=== PATIENT | female | born 1960 | race African-American/Black ===

== ENCOUNTER 2019-09-07 09:18 | Day surgery (SDC) | payer MEDICARE ==
[~2019-09-07 09:18] MED LIST: AMLODIPINE BESYL5 MG PO; AMOXICILLIN500 MG PO; ASA/BUT/CAF1 PO; ASPIRIN EC81 MG PO; ASPIRIN81 MG PO; CEPHALEXIN500 MG PO; CHILD ASA LS81 MG OR; CIPROFLOXACN500 MG PO; CYANOCOBALAM1000 MC1 IM; CYANOCOBALAM1000 MCG IM; EC ASPIRIN325 MG PO; FLEXERIL OR; FLUZONE SPLT1 M1 IM; GABAPENTIN300 M2 PO; GABAPENTIN300 MG PO; GLIPIZIDE5 M2 PO; GLUCOTROL10 MG PO; INSULIN SC; IPRATROPIU0.5 MG/3 M NEB; IRON325 M1 PO; LASIX 20 MG TAB20 MG PO; LASIX 20 MG20 MG/TAB PO; LEVEMIR; LEVEMIR SC; LIPITOR40 M1 PO; LISINOPRIL5 MG PO; LOSARTAN POT50 MG PO; LOVASTATIN10 M1 PO; METFORMIN1000 MG PO; METFORMIN500 MG PO; MUPIROCIN2 % EX; NEURONTIN300 MG PO; NOVOLIN R IJ; PERCOCET 5/325M1 TAB; PREDNISONE10 MG PO; TEST STRIP SC; TRAMADOL HCL50 MG PO; TRESIBA FL100 UNIT/M SC; ULTRAM50 MG PO; VICTOZA18 MG/3 ML SC; VITAMIN B-121000 MC1 SL; ZITHROMAX250 MG PO; ZITHROMAX500 MG PO
[2019-09-07 13:01] VITALS: BP 142/70
== END 2019-09-07 12:45 | disposition home or self-care (01) ==
LOC: ENDO 09:18
PROVIDERS: ATTEND Surgery
PROC: 0DJD8ZZ Inspection of Lower Intestinal Tract, Via Natural or Artificial Opening Endoscopic (ICD-10-PCS; principal; 2019-09-07)
DX: Z12.11 Encounter for screening for malignant neoplasm of colon (principal); K57.30 Diverticulosis of large intestine without perforation or abscess without bleeding; K64.8 Other hemorrhoids; E11.9 Type 2 diabetes mellitus without complications; I10 Essential (primary) hypertension; Z79.4 Long term (current) use of insulin; Z11.59 Encounter for screening for other viral diseases

== ENCOUNTER 2023-11-22 13:56 | Inpatient (IN) | payer MEDICARE ==
[~2023-11-22] VITALS: Ht 165.1 cm; Wt 158.0 kg
[~2023-11-22 13:56] MED LIST changes: +DIFLUCAN150 MG PO; +KEFLEX500 MG PO; +NYSTOP100000 UNI TD
[2023-11-22 14:00] VITALS: BP 138/75
[2023-11-22 14:23] LABS: BASO% 0.1 % (0-3); EOS% 2.2 % (0-8); HEMOGLOBIN 11.4 g/dl (12.0-16.0); IMMATURE GRANULOCYTES 0.3 % (0.0-5.0); LYMPH% 30.3 % (15-41); MEAN CELL VOLUME 83.3 fL CALC (80.0-100.0); MEAN CORPUSCULAR HGB 23.2 pG CALC (26.0-32.0); MEAN CORPUSCULAR HGB CONC 27.8 g/dL CAL (32.0-36.0); MONO% 6.3 % (2-13); NEUT# 8.61 thou/uL (2.00-7.15); NEUT% 60.8 % (42-76); RED BLOOD COUNT 4.92 mill/uL (4.20-5.60); RED CELL DISTRI WIDTH 15.7 % (11.5-15.5)
[2023-11-22 14:33] LABS: ALBUMIN 4.2 g/dL (3.2-5.0); BILIRUBIN, TOTAL 0.6 mg/dL (0.02-1.3); CREATININE 2.7 mg/dL (0.5-1.0); TOTAL PROTEIN 8.4 g/dL (6.3-8.2)
[2023-11-22 14:38] LABS: POTASSIUM 5.5 mmol/l (3.5-5.1)
[2023-11-22] MEDS ORDERED: SODIUM CHLORIDE 0.9% 1,000 ML IV ONE (15:05)
[2023-11-22 15:26] LABS: URINE BILIRUBIN - DIPSTICK Negative (NEGATIVE); URINE BLOOD DIPSTICK Negative (NEGATIVE); URINE COLOR Yellow; URINE GLUCOSE - DIPSTICK 500 mg/dL (NEGATIVE); URINE KETONE Negative (NEGATIVE); URINE LEUK ESTERASE Moderate (NEGATIVE); URINE NITRITE - DIPSTICK Negative (Negative); URINE PH 5.5 (4.5-8.0); URINE PROTEIN - DIPSTICK 100 mg/dL (NEG-TRACE); URINE UROBILINOGEN - DIPSTICK 0.2 E.U./dL (0.2)
[2023-11-22] MEDS ORDERED: AZITHROMYCIN 500 MG in SODIUM CHLORIDE 0.9% 250 ML IV ONE (15:30)
[2023-11-22 15:32] LABS: URINE BACTERIA MODERATE hpf; URINE SQUAMOUS EPITHELIAL CELL MANY EPI/hpf (0-FEW)
[2023-11-22] MEDS ORDERED: SODIUM CHLORIDE 0.9% 1,000 ML IV PRN (15:45)
[2023-11-22] MEDS ORDERED: MAGNESIUM HYDROXIDE 30 ML UDC PO PRN (15:45)
[2023-11-22] MEDS ORDERED: ACETAMINOPHEN 325 MG/TAB PO PRN (15:45)
[2023-11-22] MEDS ORDERED: IPRATROPIUM-Albuterol 0.5MG-2.5MG/3 ML NEB ONE ×2 (16:05)
[2023-11-22 20:19] VITALS: BP 153/70
[2023-11-22] MEDS ORDERED: GABAPENTIN 300 MG/CAP PO SCH (21:00)
[2023-11-22] MEDS ORDERED: Heparin SODIUM (Porcine) 5,000 UNITS/ML SDV SC SCH (21:00)
[2023-11-23] VITALS (8 sets, daily range): BP systolic 108–172; BP diastolic 53–72
[2023-11-23 05:46] LABS: HEMATOCRIT 43.1 % (37.0-47.0); HEMOGLOBIN 11.9 g/dl (12.0-16.0); MEAN CELL VOLUME 84.5 fL CALC (80.0-100.0); MEAN CORPUSCULAR HGB 23.3 pG CALC (26.0-32.0); MEAN CORPUSCULAR HGB CONC 27.6 g/dL CAL (32.0-36.0); RED BLOOD COUNT 5.1 mill/uL (4.20-5.60); RED CELL DISTRI WIDTH 15.8 % (11.5-15.5)
[2023-11-23 06:06] LABS: ALBUMIN 3.9 g/dL (3.2-5.0); BILIRUBIN, TOTAL 0.4 mg/dL (0.02-1.3); CREATININE 2.7 mg/dL (0.5-1.0); TOTAL PROTEIN 7.6 g/dL (6.3-8.2)
[2023-11-23 06:08] LABS: MAGNESIUM 2.3 mg/dL (1.6-2.3); POTASSIUM 5.2 mmol/l (3.5-5.1)
[2023-11-23] MEDS ORDERED: DEXTROSE 250 ML IV PRN (06:40)
[2023-11-23] MEDS ORDERED: IPRATROPIUM-Albuterol 0.5MG-2.5MG/3 ML NEB SCH (07:00)
[2023-11-23] MEDS ORDERED: INSULIN LISPRO 100 UNITS/ML ML SC SCH (07:30)
[2023-11-23] MEDS ORDERED: ASPIRIN 81 MG/TAB PO SCH (09:00)
[2023-11-23] MEDS ORDERED: predniSONE 20 MG/TAB PO SCH (09:00)
[2023-11-23] MEDS ORDERED: FLUTICASONE PROPIONATE (Nasal) 50MCG/SPRAY INH SCH (09:00)
[2023-11-23] MEDS ORDERED: IPRATROPIUM-Albuterol 0.5MG-2.5MG/3 ML NEB PRN (11:26)
[2023-11-23] MEDS ORDERED: NYSTATIN 1500 MU/BTL TOP SCH (13:00)
[2023-11-23] MEDS ORDERED: AZITHROMYCIN 500 MG in SODIUM CHLORIDE 0.9% 250 ML IV SCH (15:30)
[2023-11-24 00:21] VITALS: BP 137/66
[2023-11-24 04:47] VITALS: BP 118/38
[2023-11-24 05:28] LABS: ALBUMIN 3.4 g/dL (3.2-5.0); CREATININE 2.3 mg/dL (0.5-1.0)
[2023-11-24 05:31] LABS: ALBUMIN 3.7 g/dL (3.2-5.0); BILIRUBIN, TOTAL 0.5 mg/dL (0.02-1.3); CREATININE 2.3 mg/dL (0.5-1.0); MAGNESIUM 2.2 mg/dL (1.6-2.3); POTASSIUM 5.1 mmol/l (3.5-5.1); TOTAL PROTEIN 7.4 g/dL (6.3-8.2)
[2023-11-24 05:33] LABS: POTASSIUM 5.2 mmol/l (3.5-5.1)
[2023-11-24 05:38] LABS: BASO% 0.2 % (0-3); HEMATOCRIT 40.4 % (37.0-47.0); HEMOGLOBIN 11.3 g/dl (12.0-16.0); IMMATURE GRANULOCYTES 0.4 % (0.0-5.0); LYMPH% 24.1 % (15-41); MEAN CELL VOLUME 84.7 fL CALC (80.0-100.0); MEAN CORPUSCULAR HGB 23.7 pG CALC (26.0-32.0); MONO% 5.5 % (2-13); NEUT# 8.91 thou/uL (2.00-7.15); NEUT% 64.8 % (42-76); RED BLOOD COUNT 4.77 mill/uL (4.20-5.60); RED CELL DISTRI WIDTH 15.7 % (11.5-15.5)
[2023-11-24 07:20] VITALS: BP 145/61
[2023-11-24] MEDS ORDERED: AMOX/K CLAV875 M1 PO (10:48)
[2023-11-24 11:06] VITALS: BP 149/66
[2023-11-24 16:14] VITALS: BP 128/53
== END 2023-11-24 18:09 | DRG 193 ==
LOC: ED 13:56 → ED-I 15:22 → ED 16:06 → MS2 16:07
PROVIDERS: Family Medicine; Internal Medicine Nephrology; Student in an Organized Health Care Education/Training Program; ADMIT Internal Medicine; ATTEND Internal Medicine
DX: J18.9 Pneumonia, unspecified organism (principal); J96.01 Acute respiratory failure with hypoxia; J96.02 Acute respiratory failure with hypercapnia; E87.4 Mixed disorder of acid-base balance; Z68.43 Body mass index [BMI] 50.0-59.9, adult; N18.4 Chronic kidney disease, stage 4 (severe); E66.2 Morbid (severe) obesity with alveolar hypoventilation; E87.5 Hyperkalemia; D63.1 Anemia in chronic kidney disease; I12.9 Hypertensive chronic kidney disease with stage 1 through stage 4 chronic kidney disease, or unspecified chronic kidney disease; E11.22 Type 2 diabetes mellitus with diabetic chronic kidney disease; E11.40 Type 2 diabetes mellitus with diabetic neuropathy, unspecified; E11.65 Type 2 diabetes mellitus with hyperglycemia; E78.5 Hyperlipidemia, unspecified; Z79.85 Long-term (current) use of injectable non-insulin antidiabetic drugs; Z87.440 Personal history of urinary (tract) infections; Z87.891 Personal history of nicotine dependence; Z20.822 Contact with and (suspected) exposure to COVID-19

== ENCOUNTER 2024-01-10 10:33 | Emergency (ER) | payer MEDICARE ==
[2024-01-10] VITALS (11 sets, daily range): BP systolic 120–164; BP diastolic 63–86
[~2024-01-10] VITALS: Ht 165.1 cm; Wt 149.0 kg
[~2024-01-10 10:33] MED LIST changes: +AMOX/K CLAV875 M1 PO; +LASIX40 MG PO; +ZESTRIL40 MG PO
[2024-01-10 11:56] LABS: BASO% 0.4 % (0-3); EOS% 4.4 % (0-8); HEMATOCRIT 42.6 % (37.0-47.0); IMMATURE GRANULOCYTES 0.4 % (0.0-5.0); LYMPH% 33.6 % (15-41); MEAN CORPUSCULAR HGB 23.4 pG CALC (26.0-32.0); MEAN CORPUSCULAR HGB CONC 28.2 g/dL CAL (32.0-36.0); MONO% 8.1 % (2-13); NEUT# 4.49 thou/uL (2.00-7.15); NEUT% 53.1 % (42-76); RED BLOOD COUNT 5.13 mill/uL (4.20-5.60); RED CELL DISTRI WIDTH 16.8 % (11.5-15.5)
[2024-01-10] MEDS ORDERED: ALBUTEROL SULFATE 2.5 MG VIAL IN ONE (12:05)
[2024-01-10 12:12] LABS: BILIRUBIN, TOTAL 0.5 mg/dL (0.02-1.3); CREATININE 1.5 mg/dL (0.5-1.0); POTASSIUM 4.6 mmol/l (3.5-5.1); TOTAL PROTEIN 7.8 g/dL (6.3-8.2)
[2024-01-10 12:13] LABS: ALBUMIN 4.1 g/dL (3.2-5.0)
[2024-01-10 12:28] LABS: PROTHROMBIN TIME 9.6 SECONDS (9.0-12.5)
[2024-01-10] MEDS ORDERED: methylPREDNISolone SODIUM SUCC 125 MG/2 ML SDV IV ONE (13:25)
[2024-01-10] MEDS ORDERED: ALBUTEROL SUL0.083 % IN (13:29)
[2024-01-10] MEDS ORDERED: PREDNISONE20 MG PO (13:29)
[2024-01-10] MEDS ORDERED: NEBULIZER PO (13:29)
== END 2024-01-10 13:57 | disposition home or self-care (01) ==
LOC: ED 10:33
PROVIDERS: Family Medicine
DX: J44.1 Chronic obstructive pulmonary disease with (acute) exacerbation (principal); I13.0 Hypertensive heart and chronic kidney disease with heart failure and stage 1 through stage 4 chronic kidney disease, or unspecified chronic kidney disease; E11.22 Type 2 diabetes mellitus with diabetic chronic kidney disease; N18.9 Chronic kidney disease, unspecified; I50.9 Heart failure, unspecified; E11.40 Type 2 diabetes mellitus with diabetic neuropathy, unspecified; E66.01 Morbid (severe) obesity due to excess calories; Z87.891 Personal history of nicotine dependence

== ENCOUNTER 2024-03-05 23:40 | Inpatient (IN) | payer MEDICARE ==
[~2024-03-05] VITALS: Ht 165.1 cm; Wt 154.4 kg
[~2024-03-05 23:40] MED LIST changes: +ALBUTEROL SUL0.083 % IN; +LASIX 40 MG TAB40 MG PO; +NEBULIZER PO; +OMNICEF300 MG PO; +PREDNISONE20 MG PO; +PREDNISONE50 MG PO
[2024-03-05] MEDS ORDERED: SODIUM CHLORIDE 0.9% 1,000 ML IV PRN (23:50)
[2024-03-05 23:51] VITALS: BP 151/79
[2024-03-05] MEDS ORDERED: ONDANSETRON HCl 4 MG/2 ML SDV IV ONE (23:55)
[2024-03-05] MEDS ORDERED: BENZONATATE 200 MG/CAP PO ONE (23:55)
[2024-03-06] VITALS (19 sets, daily range): BP systolic 104–169; BP diastolic 42–98
[2024-03-06] MEDS ORDERED: SODIUM CHLORIDE 0.9% 1,000 ML BAG IV ONE (00:10)
[2024-03-06 00:34] LABS: BASO% 0.4 % (0-3); EOS% 7.2 % (0-8); HEMATOCRIT 33.3 % (37.0-47.0); HEMOGLOBIN 9.5 g/dl (12.0-16.0); IMMATURE GRANULOCYTES 0.8 % (0.0-5.0); MEAN CELL VOLUME 81.6 fL CALC (80.0-100.0); MEAN CORPUSCULAR HGB 23.3 pG CALC (26.0-32.0); MEAN CORPUSCULAR HGB CONC 28.5 g/dL CAL (32.0-36.0); MONO% 6.5 % (2-13); NEUT# 9.53 thou/uL (2.00-7.15); NEUT% 66.1 % (42-76); RED BLOOD COUNT 4.08 mill/uL (4.20-5.60); RED CELL DISTRI WIDTH 16.5 % (11.5-15.5)
[2024-03-06 00:44] LABS: ALBUMIN 2.8 g/dL (3.2-5.0); BILIRUBIN, TOTAL 0.6 mg/dL (0.02-1.3); CREATININE 2.2 mg/dL (0.5-1.0); TOTAL PROTEIN 5.7 g/dL (6.3-8.2)
[2024-03-06 00:50] LABS: POTASSIUM 3.5 mmol/l (3.5-5.1)
[2024-03-06] MEDS ORDERED: INSULIN REGULAR (HUMAN) 100 UNIT/ML INJ IV ONE ×2 (00:55→01:25)
[2024-03-06] MEDS ORDERED: CEFEPIME HYDROCHLORIDE 2 GM in SODIUM CHLORIDE 0.9% 100 ML IV ONE (01:00)
[2024-03-06] MEDS ORDERED: GABAPENTIN 300 MG/CAP PO ONE (02:10)
[2024-03-06] MEDS ORDERED: MAGNESIUM HYDROXIDE 30 ML UDC PO PRN (02:25)
[2024-03-06] MEDS ORDERED: ACETAMINOPHEN 325 MG/TAB PO PRN (02:25)
[2024-03-06] MEDS ORDERED: SODIUM CHLORIDE 0.9% 1,000 ML IV PRN (02:25)
[2024-03-06] MEDS ORDERED: DEXTROSE 250 ML IV PRN (08:55)
[2024-03-06] MEDS ORDERED: INSULIN GLARGINE 100 UNITS/ML SC SCH (09:00)
[2024-03-06] MEDS ORDERED: IPRATROPIUM-Albuterol 0.5MG-2.5MG/3 ML NEB PRN (09:05)
[2024-03-06] MEDS ORDERED: INSULIN LISPRO 100 UNITS/ML ML SC SCH (11:00)
[2024-03-06] MEDS ORDERED: GUAIFENESIN 600 MG/TAB PO SCH (11:00)
[2024-03-06] MEDS ORDERED: CEFEPIME HYDROCHLORIDE 2 GM in SODIUM CHLORIDE 0.9% 100 ML IV SCH (13:00)
[2024-03-06] MEDS ORDERED: Heparin SODIUM (Porcine) 5,000 UNITS/ML SDV SC SCH (14:00)
[2024-03-06] MEDS ORDERED: NYSTATIN 1500 MU/BTL TOP SCH (21:00)
[2024-03-06] MEDS ORDERED: GABAPENTIN 300 MG/CAP PO SCH (21:00)
[2024-03-06] MEDS ORDERED: ATORVASTATIN CALCIUM 40 MG/TAB PO SCH (21:00)
[2024-03-07] VITALS (8 sets, daily range): BP systolic 126–149; BP diastolic 58–65
[2024-03-07 06:06] LABS: BASO% 0.1 % (0-3); EOS% 7.4 % (0-8); HEMATOCRIT 37.1 % (37.0-47.0); HEMOGLOBIN 10.1 g/dl (12.0-16.0); IMMATURE GRANULOCYTES 0.7 % (0.0-5.0); LYMPH% 29.5 % (15-41); MEAN CORPUSCULAR HGB 23.7 pG CALC (26.0-32.0); MEAN CORPUSCULAR HGB CONC 27.2 g/dL CAL (32.0-36.0); MONO% 7.8 % (2-13); NEUT# 8.29 thou/uL (2.00-7.15); NEUT% 54.5 % (42-76); RED BLOOD COUNT 4.27 mill/uL (4.20-5.60); RED CELL DISTRI WIDTH 17.1 % (11.5-15.5)
[2024-03-07 06:07] LABS: MEAN CELL VOLUME 86.9 fL CALC (80.0-100.0)
[2024-03-07 06:22] LABS: ALBUMIN 2.8 g/dL (3.2-5.0); BILIRUBIN, TOTAL 0.7 mg/dL (0.02-1.3); CREATININE 2.1 mg/dL (0.5-1.0); POTASSIUM 4.2 mmol/l (3.5-5.1); TOTAL PROTEIN 6.2 g/dL (6.3-8.2)
[2024-03-07] MEDS ORDERED: BOUDREAUX'S BUTT PASTE ZINC OXIDE 57 G PASTE EX PRN (06:35)
[2024-03-07] MEDS ORDERED: NYSTATIN 1500 MU/BTL TOP SCH (08:00)
[2024-03-07] MEDS ORDERED: FUROSEMIDE 40 MG/TAB PO SCH (09:00)
[2024-03-07] MEDS ORDERED: ASPIRIN 81 MG/TAB PO SCH (09:00)
[2024-03-07] MEDS ORDERED: LISINOPRIL 20 MG/TAB PO SCH (09:00)
[2024-03-07] MEDS ORDERED: DOXYCYCLINE HYCLATE 100 MG in SODIUM CHLORIDE 0.9% 100 ML IV SCH (11:30)
[2024-03-07 15:16] LABS: URINE BILIRUBIN - DIPSTICK Negative (NEGATIVE); URINE BLOOD DIPSTICK Moderate (NEGATIVE); URINE GLUCOSE - DIPSTICK Negative (NEGATIVE); URINE KETONE Trace mg/dL (NEGATIVE); URINE NITRITE - DIPSTICK Negative (Negative); URINE PH 5.5 (4.5-8.0); URINE PROTEIN - DIPSTICK 100 mg/dL (NEG-TRACE); URINE UROBILINOGEN - DIPSTICK 0.2 E.U./dL (0.2)
[2024-03-07 15:18] LABS: URINE BACTERIA MODERATE hpf; URINE COLOR Yellow; URINE LEUK ESTERASE Small (NEGATIVE); URINE WBC 20-50 WBC/hpf (0-5)
[2024-03-07] MEDS ORDERED: INSULIN GLARGINE 100 UNITS/ML SC SCH (21:00)
[2024-03-08] VITALS (21 sets, daily range): BP systolic 49–222; BP diastolic 27–190
[2024-03-08 05:09] LABS: BASO% 0.3 % (0-3); EOS% 6.7 % (0-8); HEMATOCRIT 35.3 % (37.0-47.0); HEMOGLOBIN 9.8 g/dl (12.0-16.0); IMMATURE GRANULOCYTES 1.4 % (0.0-5.0); LYMPH% 28.8 % (15-41); MEAN CELL VOLUME 85.7 fL CALC (80.0-100.0); MEAN CORPUSCULAR HGB 23.8 pG CALC (26.0-32.0); MEAN CORPUSCULAR HGB CONC 27.8 g/dL CAL (32.0-36.0); MONO% 7.5 % (2-13); NEUT# 8.67 thou/uL (2.00-7.15); NEUT% 55.3 % (42-76); RED BLOOD COUNT 4.12 mill/uL (4.20-5.60)
[2024-03-08 05:15] LABS: ALBUMIN 2.7 g/dL (3.2-5.0); BILIRUBIN, TOTAL 0.8 mg/dL (0.02-1.3); CREATININE 2.6 mg/dL (0.5-1.0); MAGNESIUM 1.8 mg/dL (1.6-2.3); POTASSIUM 4.9 mmol/l (3.5-5.1)
[2024-03-08] MEDS ORDERED: FUROSEMIDE 40 MG/4 ML SDV IV SCH (09:00)
[2024-03-09] VITALS (55 sets, daily range): BP systolic 46–182; BP diastolic 13–94
[2024-03-09 04:19] LABS: BASO% 0.2 % (0-3); EOS% 4.4 % (0-8); HEMOGLOBIN 9.2 g/dl (12.0-16.0); IMMATURE GRANULOCYTES 1.6 % (0.0-5.0); LYMPH% 27.5 % (15-41); MEAN CELL VOLUME 85.3 fL CALC (80.0-100.0); MEAN CORPUSCULAR HGB 23.8 pG CALC (26.0-32.0); MEAN CORPUSCULAR HGB CONC 27.9 g/dL CAL (32.0-36.0); MONO% 7.3 % (2-13); NEUT# 9.74 thou/uL (2.00-7.15); RED BLOOD COUNT 3.87 mill/uL (4.20-5.60)
[2024-03-09 04:29] LABS: ALBUMIN 2.9 g/dL (3.2-5.0); BILIRUBIN, TOTAL 0.6 mg/dL (0.02-1.3); MAGNESIUM 1.7 mg/dL (1.6-2.3); POTASSIUM 4.2 mmol/l (3.5-5.1); TOTAL PROTEIN 6.3 g/dL (6.3-8.2)
[2024-03-09 04:37] LABS: CREATININE 4.2 mg/dL (0.5-1.0)
[2024-03-09] MEDS ORDERED: SODIUM CHLORIDE 0.9% 1,000 ML IV SCH (08:00)
[2024-03-09] MEDS ORDERED: KETAMINE HCL 50 MG/ML 10 ML VIAL IV SCH (08:15)
[2024-03-09] MEDS ORDERED: SODIUM CHLORIDE 0.9% 250 ML IV PRN (08:15)
[2024-03-09] MEDS ORDERED: SUCCINYLCHOLINE CHLORIDE 20 MG/ML 10ML VIAL IV ONE ×2 (08:15→08:35)
[2024-03-09] MEDS ORDERED: KETAMINE HCL 50 MG/ML 10 ML VIAL IM ONE (08:15)
[2024-03-09] MEDS ORDERED: NOREPINEPHRINE BITARTRATE 4 MG in DEXTROSE 5% 250 ML IV ONE (08:15)
[2024-03-09] MEDS ORDERED: NOREPINEPHRINE BITARTRATE 4 MG/VIAL SDV ONE (08:20)
[2024-03-09] MEDS ORDERED: ROCURONIUM BROMIDE 10 MG/ML 5ML VIAL IV ONE ×2 (08:20→08:35)
[2024-03-09] MEDS ORDERED: SODIUM CHLORIDE 0.9% 250 ML IV ONE ×2 (08:21→09:23)
[2024-03-09] MEDS ORDERED: SODIUM CHLORIDE 0.9% 100 ML IV ONE (08:24)
[2024-03-09] MEDS ORDERED: PHENYLEPHRINE HCL 10 MG/ML VIAL ONE (08:24)
[2024-03-09] MEDS ORDERED: PROPOFOL 100 ML IV ONE (08:34)
[2024-03-09] MEDS ORDERED: KETAMINE HCL 50 MG/ML 10 ML VIAL IV ONE (08:35)
[2024-03-09] MEDS ORDERED: NOREPINEPHRINE BITARTRATE 4 MG in DEXTROSE 5% 250 ML IV PRN (08:40)
[2024-03-09] MEDS ORDERED: PROPOFOL 100 ML IV PRN (08:45)
[2024-03-09] MEDS ORDERED: methylPREDNISolone Sod Succ 40 MG/ML SDV IV SCH (09:00)
[2024-03-09] MEDS ORDERED: SODIUM CHLORIDE 0.9% 1,000 ML BAG IV ONE (11:29)
[2024-03-09] MEDS ORDERED: DEXTROSE 10% 250 ML BAG IV ONE (11:29)
[2024-03-09] MEDS ORDERED: CEFEPIME HYDROCHLORIDE 1 GM in SODIUM CHLORIDE 0.9% 50 ML IV SCH (13:00)
== END 2024-03-09 12:45 | disposition short-term general hospital (02) | DRG 291 ==
LOC: ED 23:40 → ED-I 23:53 → ED 03-06 02:20 → MS2 03-06 02:21 → ICU 03-08 20:22
PROVIDERS: Family Medicine; Nurse Practitioner Family; ADMIT Student in an Organized Health Care Education/Training Program; ATTEND Student in an Organized Health Care Education/Training Program
PROC: 0BH17EZ Insertion of Endotracheal Airway into Trachea, Via Natural or Artificial Opening (ICD-10-PCS; principal; 2024-03-09)
PROC: 5A1935Z Respiratory Ventilation, Less than 24 Consecutive Hours (ICD-10-PCS; 2024-03-09)
PROC: 02HV33Z Insertion of Infusion Device into Superior Vena Cava, Percutaneous Approach (ICD-10-PCS; 2024-03-09)
PROC: 0T9B70Z Drainage of Bladder with Drainage Device, Via Natural or Artificial Opening (ICD-10-PCS; 2024-03-09)
PROC: 5A0935A Assistance with Respiratory Ventilation, Less than 24 Consecutive Hours, High Flow/Velocity Cannula (ICD-10-PCS; 2024-03-09)
PROC: 3E043XZ Introduction of Vasopressor into Central Vein, Percutaneous Approach (ICD-10-PCS; 2024-03-09)
DX: I13.0 Hypertensive heart and chronic kidney disease with heart failure and stage 1 through stage 4 chronic kidney disease, or unspecified chronic kidney disease (principal); J18.9 Pneumonia, unspecified organism; N17.0 Acute kidney failure with tubular necrosis; J96.22 Acute and chronic respiratory failure with hypercapnia; J96.21 Acute and chronic respiratory failure with hypoxia; E66.2 Morbid (severe) obesity with alveolar hypoventilation; Z68.43 Body mass index [BMI] 50.0-59.9, adult; J44.0 Chronic obstructive pulmonary disease with (acute) lower respiratory infection; N18.4 Chronic kidney disease, stage 4 (severe); I95.9 Hypotension, unspecified; E86.9 Volume depletion, unspecified; E11.22 Type 2 diabetes mellitus with diabetic chronic kidney disease; I50.9 Heart failure, unspecified; E11.65 Type 2 diabetes mellitus with hyperglycemia; E11.40 Type 2 diabetes mellitus with diabetic neuropathy, unspecified; E78.5 Hyperlipidemia, unspecified; T17.928A Food in respiratory tract, part unspecified causing other injury, initial encounter; W44.F3XA Food entering into or through a natural orifice, initial encounter; Z87.891 Personal history of nicotine dependence; Z79.84 Long term (current) use of oral hypoglycemic drugs; Z20.822 Contact with and (suspected) exposure to COVID-19
CPT/HCPCS: J0692; J1815

== ENCOUNTER 2024-03-24 00:01 | Inpatient (IN) | payer MEDICARE ==
[~2024-03-24] VITALS: Ht 165.1 cm; Wt 155.6 kg
--- NOTE | 2024-03-24 23:19 | NUR ---
PT ARRIVED TO [facility] ROOM 261 VIA STRETCHER FROM [facility]. NO DISTRESS NOTED. PT ON NC 2L LUNGS DIMINISHED. PT CHANGED AND REPOSITIONED. CALL LIGHT INSTRUCTIONS GIVEN. PT STATED UNDERSTANDING.
[2024-03-25] MEDS ORDERED: COREG6.25 MG PO (01:19)
[2024-03-25] MEDS ORDERED: HYDRALAZINE HYD25 MG PO (01:21)
[2024-03-25] MEDS ORDERED: ACIDOPHILUS LAC1 CAP PO (01:22)
--- NOTE | 2024-03-25 04:15 | NUR ---
PT RESTING NO DISTRESS NOTED HEART MONITOR PLACED ON PT. CALL LIGHT WITHIN REACH.
[2024-03-25 05:27] LABS: BASO% 0.3 % (0-3); EOS% 5.6 % (0-8); HEMATOCRIT 36.1 % (37.0-47.0); HEMOGLOBIN 10.4 g/dl (12.0-16.0); LYMPH% 27.9 % (15-41); MEAN CELL VOLUME 82.2 fL CALC (80.0-100.0); MEAN CORPUSCULAR HGB 23.7 pG CALC (26.0-32.0); MEAN CORPUSCULAR HGB CONC 28.8 g/dL CAL (32.0-36.0); MONO% 10.4 % (2-13); NEUT# 4.93 thou/uL (2.00-7.15); NEUT% 54.8 % (42-76); RED BLOOD COUNT 4.39 mill/uL (4.20-5.60); RED CELL DISTRI WIDTH 18.9 % (11.5-15.5)
[2024-03-25 05:38] LABS: ALBUMIN 3.3 g/dL (3.2-5.0); BILIRUBIN, TOTAL 0.6 mg/dL (0.02-1.3); CREATININE 3.3 mg/dL (0.5-1.0); POTASSIUM 4.1 mmol/l (3.5-5.1); TOTAL PROTEIN 6.6 g/dL (6.3-8.2)
[2024-03-25 07:23] VITALS: BP 171/62
--- NOTE | 2024-03-25 07:45 | NUR ---
PATIENT LYING IN BED WITH EYES CLOSED RESTING. BREATHING UNLABORED ON 2L NC. TELE INTACT. NO SIGNS OF DISTRESS OR PAIN NOTED. BED IN LOWEST POSITION. CALL LIGHT WITHIN REACH. PUREWICK IN PLACE. NO NEEDS AT THIS TIME. POC ONGOING.
[2024-03-25 10:38] VITALS: BP 164/72
[2024-03-25] MEDS ORDERED: DEXTROSE 250 ML IV PRN (10:50)
[2024-03-25] MEDS ORDERED: ALBUTEROL SULFATE 2.5 MG VIAL IN PRN (10:50)
[2024-03-25] MEDS ORDERED: INSULIN LISPRO 100 UNITS/ML ML SC SCH (11:30)
[2024-03-25] MEDS ORDERED: FUROSEMIDE 40 MG/TAB PO SCH (11:30)
[2024-03-25] MEDS ORDERED: ASPIRIN 81 MG/TAB PO SCH (11:30)
--- NOTE | 2024-03-25 12:39 | NUR ---
PATIENT SITTING UP IN BED WATCHING TV. BREATHING UNLABORED 2L NC. TELE INTACT. PT DENIES ANY PAIN OR N/D/V AT THIS TIME. PERSONAL ITEMS WELL CALL LIGHT WITHIN REACH. BED IN LOWEST POSITION. POC ONGOING.
[2024-03-25] MEDS ORDERED: hydrALAZINE HCL 20 MG/ML VIAL(1 ML) IV PRN (13:25)
[2024-03-25] MEDS ORDERED: amLODIPine BESYLATE 5 MG/TAB PO SCH (13:30)
[2024-03-25] MEDS ORDERED: hydrALAZINE HCL 25 MG/TAB PO SCH (15:00)
[2024-03-25] MEDS ORDERED: GABAPENTIN 300 MG/CAP PO SCH (15:00)
--- NOTE | 2024-03-25 16:20 | NUR ---
PATIENT LYING IN BED WITH EYES CLOSED RESTING. BREATHING UNLABORED ON 2L NC. NO SIGNS OF DISTRESS OR PAIN NOTED. BED IN LOWEST POSITION. CALL LIGHT WITHIN REACH. NO NEEDS AT THIS TIME. POC ONGOING.
[2024-03-25 16:49] VITALS: BP 155/61
[2024-03-25] MEDS ORDERED: ATORVASTATIN CALCIUM 40 MG/TAB PO SCH (17:00)
[2024-03-25 18:44] VITALS: BP 148/68
[2024-03-25] MEDS ORDERED: CARVEDILOL 6.25 MG/TAB PO SCH (21:00)
[2024-03-26 00:05] VITALS: BP 137/59
[2024-03-26 04:22] VITALS: BP 149/62
[2024-03-26 05:20] LABS: BASO% 0.3 % (0-3); EOS% 6.5 % (0-8); HEMATOCRIT 36.9 % (37.0-47.0); HEMOGLOBIN 10.5 g/dl (12.0-16.0); IMMATURE GRANULOCYTES 0.6 % (0.0-5.0); LYMPH% 26.3 % (15-41); MEAN CELL VOLUME 82.6 fL CALC (80.0-100.0); MEAN CORPUSCULAR HGB 23.5 pG CALC (26.0-32.0); MEAN CORPUSCULAR HGB CONC 28.5 g/dL CAL (32.0-36.0); MONO% 11.6 % (2-13); NEUT# 4.81 thou/uL (2.00-7.15); NEUT% 54.7 % (42-76); RED BLOOD COUNT 4.47 mill/uL (4.20-5.60); RED CELL DISTRI WIDTH 18.7 % (11.5-15.5)
[2024-03-26 05:34] LABS: ALBUMIN 3.2 g/dL (3.2-5.0); BILIRUBIN, TOTAL 0.6 mg/dL (0.02-1.3); CREATININE 2.7 mg/dL (0.5-1.0); MAGNESIUM 1.7 mg/dL (1.6-2.3); POTASSIUM 4.2 mmol/l (3.5-5.1); TOTAL PROTEIN 6.4 g/dL (6.3-8.2)
[2024-03-26 06:54] VITALS: BP 157/66
--- NOTE | 2024-03-26 07:40 | NUR ---
PRN RESPIRATORY THERAPY ASSESSMENT PERFORMED & NO INTERVENTION INDICATED AT THIS TIME. WILL CONT TO MONITOR.
--- NOTE | 2024-03-26 07:56 | NUR ---
PATIENT LYING IN BED AWAKE. BREATHING UNLABORED ON 2L NC. TELE INTACT. IV IN LAC SL;SITE CLEAN AND INTACT. PT DENIES ANY PAIN OR N/D/V AT THIS TIME. PT CURRENTLY ON BEDPAN ATTEMPTING TO HAVE A BM. NO OTHER NEEDS AT THIS TIME. BED IN LOWEST POSITION. CALL LIGHT WITHIN REACH. POC ONGOING.
[2024-03-26 10:53] VITALS: BP 137/58
--- NOTE | 2024-03-26 10:55 | NUR ---
ATTEMPTED TO GET PT UP TO RECLINER X4 ASSIST UNSUCCESSFULLY. PATIENT LEANS TO LEFT SIDE WHEN SITTING UP ON THE END OF THE BED AND UNABLE TO PUSH HERSELF UP FROM BED WITH HELP. POC ONGOING.
[2024-03-26] MEDS ORDERED: DEXTROSE 250 ML IV PRN (11:35)
[2024-03-26] MEDS ORDERED: Heparin SODIUM (Porcine) 5,000 UNITS/ML SDV SC SCH (12:00)
--- NOTE | 2024-03-26 12:40 | NUR ---
PATIENT LYING IN BED WITH EYES CLOSED. BREATHING UNLABORED ON 2L NC. TELE INTACT. NO SIGNS OF DISTRESS OR PAIN NOTED. BED IN LOWEST POSITION. CALL LIGHT WITHIN REACH. POC ONGOING.
[2024-03-26 15:30] VITALS: BP 129/56
--- NOTE | 2024-03-26 16:05 | NUR ---
PATIENT BS [id number]. NOTIFIED AND AWARE. 10 UNITS OF INSULIN GIVEN PER SLIDING SCALE.
--- NOTE | 2024-03-26 16:43 | NUR ---
PATIENT LYING IN BED WATCHING TV. BREATHING UNLABORED ON 2L NC. TELE INTACT. IV IN LAC SL;SITE CLEAN AND INTACT. PT DENIES ANY PAIN OR N/D/V AT THIS TIME. BED IN LOWEST POSITION. CALL LIGHT WITHIN REACH. NO OTHER NEEDS AT THIS TIME. POC ONGOING.
[2024-03-26] MEDS ORDERED: INSULIN LISPRO 100 UNITS/ML ML SC SCH (17:00)
[2024-03-26 18:10] VITALS: BP 155/68
[2024-03-26] MEDS ORDERED: GUAIFENESIN 200 MG/10 ML UDC PO SCH (21:00)
[2024-03-27] VITALS (7 sets, daily range): BP systolic 100–138; BP diastolic 44–73
[2024-03-27 05:47] LABS: BASO% 0.4 % (0-3); EOS% 5.2 % (0-8); HEMATOCRIT 39.2 % (37.0-47.0); HEMOGLOBIN 10.9 g/dl (12.0-16.0); IMMATURE GRANULOCYTES 0.5 % (0.0-5.0); LYMPH% 26.2 % (15-41); MEAN CELL VOLUME 84.7 fL CALC (80.0-100.0); MEAN CORPUSCULAR HGB 23.5 pG CALC (26.0-32.0); MEAN CORPUSCULAR HGB CONC 27.8 g/dL CAL (32.0-36.0); MONO% 11.9 % (2-13); NEUT# 6.28 thou/uL (2.00-7.15); NEUT% 55.8 % (42-76); RED BLOOD COUNT 4.63 mill/uL (4.20-5.60); RED CELL DISTRI WIDTH 18.8 % (11.5-15.5)
[2024-03-27 06:08] LABS: ALBUMIN 3.4 g/dL (3.2-5.0); BILIRUBIN, TOTAL 0.6 mg/dL (0.02-1.3); CREATININE 2.7 mg/dL (0.5-1.0); POTASSIUM 4.3 mmol/l (3.5-5.1); TOTAL PROTEIN 6.9 g/dL (6.3-8.2)
[2024-03-27 06:23] LABS: MAGNESIUM 1.8 mg/dL (1.6-2.3)
--- NOTE | 2024-03-27 07:19 | NUR ---
PRN RT ASSESSMENT PERFORMED AT THIS TIME. PT RESTING COMFORTABLY. O2 SATS 95% ON 2.5L, HR 64, RR 16 & UNLABORED. LUNG SOUNDS SLIGHTLY DIMINISHED IN BILATERAL BASES WITH SCATTERED CRACKLES HEARD T/O. NO TX NEEDED AT THIS TIME. WILL CONT TO MONITOR.
--- NOTE | 2024-03-27 08:00 | NUR ---
Patient lying in bed watching television.
--- NOTE | 2024-03-27 12:01 | NUR ---
Patient lying in bed asleep.
--- NOTE | 2024-03-27 16:00 | NUR ---
Patient lying in bed with eyes closed.
--- NOTE | 2024-03-27 19:30 | NUR ---
PT IS ALERT AND ORIENTED X3. RESPS ARE EVEN AND UNLABORED. O2 ON PLACE ORDERED VIA NASAL CANNULA AT 2L. DIMINISHED/CLEAR LUNG SOUNDS TO AUSCULTATION. TELE MONITOR SHOWING SR 60'S AT THIS TIME. SKIN IS SCALY, WARMTH AND DRY. PUREWICK NOTED WITH IQRA URINE. 20 G IV ON LEFT A/C NOTED FLUSHED WITH 5 CC- APPEARS CLEAN AND HEALTHY. INSTRUCTED TO CALL FOR ASSISTANCE. BED IN LOWEST POSITION. CALL LIGHT IN REACH AND SAFETY PRECAUTIONS ON PLACE.
--- NOTE | 2024-03-27 19:30 | NUR ---
PT IS ALERT AND ORIENTED X3. RESPS ARE EVEN AND UNLABORED. OX ON PLACE VIA NASAL CANNULA AT 2L. LUNG SOUNDS ARE CLEAR TO AUSCULTATION . TELE MONITOR SHOWING SR-60'S AT THIS TIME. SKIN IS WARMTH AND DRY. NO EDEMA NOTED. WEAK PEDAL PALPABLE PULSES. PUREWICK ON PLACE WITH YELLOW URINE. INSTRUCTED TO CALL FOR ASSISTANCE IF NEEDED. CALL LIGHT IN REACH AND SAFETY PRECAUTIONS IN PLACE.
[2024-03-28] VITALS (53 sets, daily range): BP systolic 95–145; BP diastolic 40–75
--- NOTE | 2024-03-28 00:10 | NUR ---
PT RESTING ON BED. RESPS ARE EVEN AND UNLABORED. NO SIGNS OF DISTRESS NOTED AT THIS TIME. 02 VIA NC AT 2L ON PLACE ORDERED. CALL LIGHT IN REACH AND SAFETY PRECAUTIONS ON PLACE
--- NOTE | 2024-03-28 04:31 | NUR ---
PT SSITTING UP ON BED WATCHING TV AT THIS TIME. [address] ORDERED[address] O SIGNS OF DISTRESS NOTED. TELE MONITOE SHOWING [id number] AT THIS TIME. CALL LIGHT IN REACH AND SAFETY PRECAUTIONS ON PLACE.
--- NOTE | 2024-03-28 05:39 | NUR ---
PATIENT RESTING IN BED AT THIS TIME WITH HOB ELEVATED AND O2 VIA NASAL CANNULA IN PLACE. O2 SATS ARE 98% AT THIS TIME. PUREWICK WITH ONLY 100CC OF CLOUDY IQRA URINE. BLADDER SCAN FOR ONLY 123CC OF URINE. PT INCONT OF MODERATE AMT OF URINE. PROVIDED WITH PERICARE USING SOAP[ AND WATER. NEW PUREWICK PLACED. TELE MONITOR IN PLACE AND READING SA-70'S. SALINE LOCK TO LAC INTACT. REPOSITIONED IN BED. CALL LIGHT IN REACH. WILL CONT TO MONITOR.
[2024-03-28 07:12] LABS: BASO% 0.2 % (0-3); HEMOGLOBIN 10.4 g/dl (12.0-16.0); IMMATURE GRANULOCYTES 0.3 % (0.0-5.0); LYMPH% 33.8 % (15-41); MEAN CORPUSCULAR HGB 23.3 pG CALC (26.0-32.0); MEAN CORPUSCULAR HGB CONC 27.4 g/dL CAL (32.0-36.0); MONO% 11.2 % (2-13); NEUT# 4.37 thou/uL (2.00-7.15); NEUT% 48.5 % (42-76); RED BLOOD COUNT 4.47 mill/uL (4.20-5.60); RED CELL DISTRI WIDTH 18.6 % (11.5-15.5)
--- NOTE | 2024-03-28 07:20 | NUR ---
PT LAYING IN BED RESTING WITH EYES CLOSED, AROUSES EASILY TO VERBAL STIMULI, PT IS A&O X3, RESP. EVEN AND UNLABORED, LUNG SOUNDS ARE DIMINISHED WITH WHEEZES, O2 AT 2L VIA NC, ABD DISTENEDED AND SOFT WITH ACTIVE BOWEL SOUNDS, STRONG RADIAL PULSES, WEAK PEDAL PULSES, 20G LAC IV SL, PURE WICK IN PLACE, SAFETY MEASURES REINFORCED, CALL [place] WITHIN REACH
[2024-03-28 07:25] LABS: ALBUMIN 3.2 g/dL (3.2-5.0); BILIRUBIN, TOTAL 0.4 mg/dL (0.02-1.3); CREATININE 3.5 mg/dL (0.5-1.0); POTASSIUM 4.3 mmol/l (3.5-5.1); TOTAL PROTEIN 6.5 g/dL (6.3-8.2)
--- NOTE | 2024-03-28 10:00 | NUR ---
PT HARDER TO AROUSE, VS OBTAINED, HR 71, BP 95/39 REPEAT 95/40, O2 97% ON 2L O2 VIA NC, MANUAL BP TAKEN 98/58, PROVIDER MADE AWARE, ORDERS GIVEN
--- NOTE | 2024-03-28 11:10 | NUR ---
PT TRANSFERED TO ICU PER PROVIDERS ORDER, PT TRANSFERED VIA BED, BEDSIDE REPORT GIVEN TO KALEIGH
--- NOTE | 2024-03-28 11:23 | NUR ---
RECEIVED PT FROM MARIBELL. RECEIVED BEDSIDE REPORT. PT IS IN BED RT YONY AT THE BEDSIDE. PT IS AWAKE AND LETHARGIC. CALL LIGHT IN REACH.
--- NOTE | 2024-03-28 12:15 | NUR ---
PT IS RESTING IN BED, EASILY AROUSABLE. CALL LIGHT IN REACH.
--- NOTE | 2024-03-28 14:06 | NUR ---
PT IS SLEEPING IN BED. CALL LIGHT IN REACH. PT ON BIPAP AND TELEMETRY
--- NOTE | 2024-03-28 16:09 | NUR ---
PT IS LAYING IN BED ASLEEP. ON BIPAP AND TELEMETRY. CALL LIGHT IN REACH.
--- NOTE | 2024-03-28 18:16 | NUR ---
PT IS SLEEPING IN BED. ON BI-PAP AND TELEMETRY. CALL LIGHT IN REACH.
--- NOTE | 2024-03-28 20:00 | NUR ---
ASSESSMENT COMPLETED. PT IS ALERT TO SELF AND PLACE. PT ON BIPAP FOR HIGH CO2 LEVEL. PT DENIES ANY PAIN. V/S STABLE. CALL LIGHT IN REACH
--- NOTE | 2024-03-28 22:00 | NUR ---
PT RESTING, NO COMPLAINTS AT THIS TIME. WHEN GIVING PT PO MEDS, PT HAD DIFFICULTY TRYING TO SEAL MOUTH CLOSED WHEN ATTEMPTING TO TAKE A DRINK. NO SWALLOW ISSUES NOTED. V/S STABLE. CALL LIGHTIN REACH
[2024-03-29] VITALS (96 sets, daily range): BP systolic 100–161; BP diastolic 41–111
--- NOTE | 2024-03-29 00:15 | NUR ---
PT HAS PW IN PLACE, URINE WAS DARK IQRA AND ALMOST ZERO OUTPUT. A BLADDER SCAN WAS COMPLETED TO ENSURE NO URINE WAS RETAINING. HIGHEST VOLUME OF URINE WAS 169ML PER BLADDER SCANNER. PT REPOSITIONED TO L SIDE. V/S STABLE. CALL LIGHT IN REACH
--- NOTE | 2024-03-29 02:03 | NUR ---
PT RESTING COMFORTABLY, DENIES ANY PAIN. REMAINS ON BIPAP @ 32% O2, SAT IS 98%. V/S STABLE. CALL LIGHT IN REACH
--- NOTE | 2024-03-29 05:30 | NUR ---
SARAH CARE COMPLETE, NEW PW PLACED. PT REPOSITIONED TO R SIDE. REMAINS ON BIPAP, NO CHANGES. V/S STABLE. CALL LIGHT IN REACH
--- NOTE | 2024-03-29 07:42 | NUR ---
REPORT RECEIVED FROM NIGHT NURSE. PATIENT AXO X3, PATIENT IS DROWSY. S1S2 NOTED, NORMAL SINUS ON TELE. LUNG SOUNDS DIMINISHED, NO COUGH OR SOB NOTED, ON BIPAP AT 32%. ABDOMEN SOFT, DISTENDED, NON TENDER, WITH ACTIVE BOWEL SOUNDS. UPPER PULSES STRONG, LOWER WEAK. SKIN WARM AND DRY. CALL LIGHT IN REACH.
--- NOTE | 2024-03-29 08:26 | NUR ---
pt removed from Bipap and put on NC 3L to eat
--- NOTE | 2024-03-29 08:30 | NUR ---
PATIENT TAKEN OFF BIPAP AND PLACED ON 3L O2 NC. PATIENT SITTING UP IN BED EATING. ALL NEEDS MET.
[2024-03-29 09:08] LABS: BASO% 0.4 % (0-3); HEMATOCRIT 37.8 % (37.0-47.0); HEMOGLOBIN 10.6 g/dl (12.0-16.0); IMMATURE GRANULOCYTES 0.4 % (0.0-5.0); LYMPH% 34.6 % (15-41); MEAN CELL VOLUME 84.2 fL CALC (80.0-100.0); MEAN CORPUSCULAR HGB 23.6 pG CALC (26.0-32.0); MONO% 10.2 % (2-13); NEUT# 4.42 thou/uL (2.00-7.15); NEUT% 47.4 % (42-76); RED BLOOD COUNT 4.49 mill/uL (4.20-5.60); RED CELL DISTRI WIDTH 18.4 % (11.5-15.5)
[2024-03-29 09:20] LABS: ALBUMIN 3.3 g/dL (3.2-5.0); BILIRUBIN, TOTAL 0.5 mg/dL (0.02-1.3); CREATININE 3.6 mg/dL (0.5-1.0); MAGNESIUM 1.6 mg/dL (1.6-2.3); POTASSIUM 3.9 mmol/l (3.5-5.1); TOTAL PROTEIN 6.6 g/dL (6.3-8.2)
--- NOTE | 2024-03-29 10:00 | NUR ---
PATIENT SITTING UP IN BED SLEEPING. ON BIPAP AT 32% O2. ALL NEEDS MET. CALL LIGHT IN REACH.
--- NOTE | 2024-03-29 12:00 | NUR ---
PATIENT SITTING UP IN BED RESTING. ON BIPAP AT 32%. ALL NEEDS MET. CALL LIGHT IN REACH.
--- NOTE | 2024-03-29 14:00 | NUR ---
PATIENT LAYING DOWN IN BED ASLEEP. ALL NEEDS MET. CALL LIGHT IN REACH.
--- NOTE | 2024-03-29 16:00 | NUR ---
PATIENT SITTING UP IN BED WATCHING TV. ON 3L O2 NC. DENIES NEEDS AT THIS TIME. CALL LIGHT IN REACH.
--- NOTE | 2024-03-29 18:00 | NUR ---
PATIENT SITTING UP IN BED WATCHING TV. ALL NEEDS MET. CALL LIGHT IN REACH.
[2024-03-29] MEDS ORDERED: SODIUM CHLORIDE 0.9% 1,000 ML IV SCH (18:25)
--- NOTE | 2024-03-29 19:37 | NUR ---
PT AWAKE, A + O TO PPT. ASSESSMENT COMPLETED. FLUIDS INITIATED PER PROVIDER ORDERS, 18 G IN LAC OCCLUDED, NEW IV STARTED IN RAC, 22G, 18 G IN LAC REMOVED, CATHETER INTACT. NS @ 30 ML/HR. PT HAS NO COMPLAINTS. V/S STABLE, CALL LIGHT IN REACH
[2024-03-29] MEDS ORDERED: GABAPENTIN 300 MG/CAP PO SCH (21:00)
--- NOTE | 2024-03-29 22:00 | NUR ---
PT RESTING COMFORTABLY. EDUCATED PT ON KEEPING ARM STRAIGHT TO PREVENT OCCLUSION OF IV, AND IMPORTANCE OF KEEPING A PATENT IV. PT WAS A DIFFICULT STICK. O2 SAT IS 96% ON 3L NC. V/S STABLE. CALL LIGHT IN REACH
[2024-03-30] VITALS (59 sets, daily range): BP systolic 64–163; BP diastolic 38–80
--- NOTE | 2024-03-30 00:32 | NUR ---
PT PROVIDED W/ SNACKS AND FLUIDS. NO COMPLAINTS. PT REMAINS OF 3L O2 VIA NC, SAT IS 95%. V/S STABLE. CALL LIGHT IN REACH
--- NOTE | 2024-03-30 02:03 | NUR ---
PT ALERT, WATCHING TV. NO COMPLAINTS/ NO NEEDS AT THIS TIME. V/S STABLE. CALL LIGHT IN REACH
--- NOTE | 2024-03-30 06:04 | NUR ---
PT AWAKE, WATCHING TV. NEW IV START FROM BEGINNING OF SHIFT FOUND TO BE LEAKING, ATTEMPTED NEW IV LOCATIONS, 3 UNSUCCESSFUL ATTEMPTS. PT IS DIFFICULT STICK. LAB WAS UNABLE TO DRAW MORNING LABS. IV FLUIDS HAVE BEEN STOPPED DUE TO NO PATENT IV. PT HAD OUPUT OF YELLOW URINE. ENCOURAGED PT TO UPKEEP FLUID INTAKE, SPECIFICALLY WATER INTAKE. V/S STABLE. CALL LIGHT IN REACH
--- NOTE | 2024-03-30 08:00 | NUR ---
REPORT RECEIVED FROM NIGHT NURSE. PATIENT AXO X3. S1S2 NOTED, NORMAL SINUS ON TELE. LUNG SOUNDS DIMINISHED, NO COUGH OR SOB NOTED. ABDOMEN SOFT, DISTENDED, NON TENDER, WITH ACTIVE BOWEL SOUNDS. UPPER PULSES STRONG, LOWER WEAK. SKIN WARM AND DRY. CALL LIGHT IN REACH.
[2024-03-30 08:35] LABS: ALBUMIN 3.1 g/dL (3.2-5.0); CREATININE 2.8 mg/dL (0.5-1.0); MAGNESIUM 1.5 mg/dL (1.6-2.3); POTASSIUM 4.4 mmol/l (3.5-5.1)
--- NOTE | 2024-03-30 10:00 | NUR ---
PATIENT SITTING UP IN BED WATCHING TV. ALL NEEDS MET. CALL LIGHT IN REACH.
--- NOTE | 2024-03-30 12:00 | NUR ---
PATIENT SITTING UP IN BED EATING. ALL NEEDS MET. CALL LIGHT IN REACH.
--- NOTE | 2024-03-30 14:00 | NUR ---
PATIENT SITTING UP IN BED WATCHING TV. ALL NEEDS MET. CALL LIGHT IN REACH.
--- NOTE | 2024-03-30 16:00 | NUR ---
PATIENT SITTING UP RESTING WITH EYES CLOSED. ALL NEEDS MET. CALL LIGHT IN REACH.
[2024-03-30 16:22] LABS: URINE BILIRUBIN - DIPSTICK Negative (NEGATIVE); URINE BLOOD DIPSTICK Negative (NEGATIVE); URINE COLOR Yellow; URINE GLUCOSE - DIPSTICK 500 mg/dL (NEGATIVE); URINE KETONE Negative (NEGATIVE); URINE LEUK ESTERASE Small (NEGATIVE); URINE NITRITE - DIPSTICK Negative (Negative); URINE PH 5.5 (4.5-8.0); URINE PROTEIN - DIPSTICK 100 mg/dL (NEG-TRACE); URINE UROBILINOGEN - DIPSTICK 0.2 E.U./dL (0.2)
[2024-03-30 16:33] LABS: URINE SQUAMOUS EPITHELIAL CELL FEW EPI/hpf (0-FEW)
[2024-03-30 16:34] LABS: URINE BACTERIA MODERATE hpf; URINE YEAST FEW hpf
[2024-03-30 16:35] LABS: URINE COARSE GRANULAR CAST FEW lpf
--- NOTE | 2024-03-30 18:00 | NUR ---
PATIENT SITTING UP IN BED WATCHING TV. ALL NEEDS MET. CALL LIGHT IN REACH.
--- NOTE | 2024-03-30 19:00 | NUR ---
SBAR RECEIVED FROM SHARAD TEMPLE. PATIENT RESTING QUIELTY EYES CLOSED. PATIENT ON BIPAP 32% OXYGEN, SATURATION 98%. DENIES PATIENT AT THIS TIME, CALL LIGHT WITHIN REACH.
--- NOTE | 2024-03-30 21:50 | NUR ---
Patient resting in bed. Alert and oriented to person and place. Vitals obtained, assessment complete. Meds administered, Coreg and Apresoline held due to low BP/HR. Purewick in place and on continuous suction, yellow urine noted. Patient denies pain, call light within reach.
[2024-03-31] VITALS: BP 104/47
--- NOTE | 2024-03-31 | NUR ---
RESTING QUIETLY EYES CLOSED. PATIENT REPOSITIONED. BIPAP IN USE 32% OXYGEN, SATURATION 99%; TOLERATING WELL. DENIES PAIN AT THIS TIME CALL LIGHT WITHIN REACH.
--- NOTE | 2024-03-31 02:00 | NUR ---
EYES CLOSED, APPEARS SLEEPING. NO DISTRESS NOTED.
[2024-03-31 04:00] VITALS: BP 118/61
--- NOTE | 2024-03-31 04:23 | NUR ---
RESTING QUIETY EYES CLOSED. CALL LIGHT WITHIN REACH.
[2024-03-31 05:50] LABS: ALBUMIN 3.2 g/dL (3.2-5.0); CREATININE 2.5 mg/dL (0.5-1.0); MAGNESIUM 1.5 mg/dL (1.6-2.3); POTASSIUM 4.4 mmol/l (3.5-5.1)
--- NOTE | 2024-03-31 07:39 | NUR ---
REPORT RECEIVED FROM NIGHT NURSE. PATIENT AXO X3. S1S2 NOTED, NORMAL SINUS ON TELE. LUNG SOUNDS DIMINISHED, NO COUGH OR SOB NOTED. ABDOMEN SOFT, DISTENDED, NON TENDER WITH ACTIVE BOWEL SOUNDS. UPPER PULSES STRONG, LOWER WEAK. SKIN WARM AND DRY. CALL LIGHT IN REACH.
[2024-03-31] MEDS ORDERED: MAGNESIUM SULFATE HEPTAHYDRATE 50 ML IV SCH (08:30)
--- NOTE | 2024-03-31 09:23 | NUR ---
ATTEMPTED TO START IV MAGNESIUM. PATIENT IV FOUND INFILTRATED. WILL ATTEMPT TO START ANOTHER.
--- NOTE | 2024-03-31 09:45 | NUR ---
DISCUSSED WITH PATIENT THE IMPORTANCE OF HAVING A BOWEL MOVEMENT PRIOR TO DISCHARGE TO FACILITY. PATIENT STATES HER LAST BM WAS 03/28. STATED THAT SHE GOES "EVERY FEW DAYS UNLESS I START COUGHING AND THEN I HAVE A BM". PATIENT AGREED TO TAKE A LAXATIVE/STOOL SOFTNER FOR MOVEMENT ASSISTANCE.
--- NOTE | 2024-03-31 10:00 | NUR ---
PATIENT SITTING UP IN BED WATCHING TV. ALL NEEDS MET. CALL LIGHT IN REACH.
[2024-03-31] MEDS ORDERED: Polyethylene Glycol 3350 17 GM/PKT PO PRN (12:00)
[2024-03-31] MEDS ORDERED: DOCUSATE SODIUM 100 MG/CAP PO PRN (12:00)
--- NOTE | 2024-03-31 12:00 | NUR ---
PATIENT SITTING UP IN BED EATING. SISTER AT BEDSIDE. ALL NEEDS MET. CALL LIGHT IN REACH.
--- NOTE | 2024-03-31 12:14 | NUR ---
MD NOTIFIED MULTIPLE RN'S UNABLE TO PLACE AN IV FOR THIS PATIENT.
[2024-03-31] MEDS ORDERED: MAGNESIUM OXIDE 400 MG/TAB PO SCH (12:30)
[2024-03-31] MEDS ORDERED: LASIX 40 MG TAB40 MG PO (12:37)
--- NOTE | 2024-03-31 14:00 | NUR ---
PATIENT SITTING UP IN BED WATCHING TV. ALL NEEDS MET. CALL LIGHT IN REACH.
--- NOTE | 2024-03-31 16:00 | NUR ---
PATIENT SITTING UP IN BED WATCHING TV. ALL NEEDS MET. CALL LIGHT IN REACH.
--- NOTE | 2024-03-31 17:41 | NUR ---
CALLED [facility] TO CANCEL TRANSPORT FOR PATIENT SINCE PER ERLINDA (EXCEL ANALYST) PATIENT CANNOT GO TO THE REHAB IF SHE HAS NOT HAD A BOWEL MOVEMENT IN THREE DAYS. PATIENT STATES SHE DOES NOT FEEL LIKE SHE HAS TO GO STILL. PATIENT HAS RECEIVED MIRALAX, COLACE, AND A SOAP ENEMA TODAY.
--- NOTE | 2024-03-31 18:00 | NUR ---
PATIENT LAYING DOWN IN BED ASLEEP. ALL NEEDS MET. CALL LIGHT IN REACH.
--- NOTE | 2024-03-31 20:15 | NUR ---
PATIENT IN BED WATCHING TV. ALERT AND ORIENTED X3, VITALS WNL. ASSESSMENT COMPLETE. DENIES PAIN AT THIS TIME. CALL LIGHT WITHIN REACH.
[2024-04-01] VITALS: BP 141/69
--- NOTE | 2024-04-01 00:17 | NUR ---
RESTING QUIETLY EYES CLOSED. PATIENT ON BIPAP, SATURATION 100%. NO DISTRESS NOTED. CALL LIGHT WITHIN REACH.
[2024-04-01 04:03] VITALS: BP 112/51
[2024-04-01 05:57] LABS: ALBUMIN 2.9 g/dL (3.2-5.0); CREATININE 2.2 mg/dL (0.5-1.0); POTASSIUM 5.1 mmol/l (3.5-5.1)
--- NOTE | 2024-04-01 08:00 | NUR ---
PT IS SITTING IN BED AWAKE. CALL LIGHT IN REACH.
[2024-04-01] MEDS ORDERED: LACTULOSE 20 GM/30 ML UDC PO SCH ×2 (08:30→13:00)
[2024-04-01] MEDS ORDERED: CIPROFLOXACN500 MG PO (08:34)
[2024-04-01] MEDS ORDERED: CIPROFLOXACIN HCL 500 MG/TAB PO SCH (09:00)
[2024-04-01] MEDS ORDERED: MAGNESIUM OXIDE 400 MG/TAB PO SCH (09:00)
--- NOTE | 2024-04-01 10:00 | NUR ---
PT IS WATCHING TV IN BED. CALL LIGHT IN REACH.
--- NOTE | 2024-04-01 12:05 | NUR ---
PT IS EATING LUCH, SITTING UP IN BED. CALL LIGHT IN REACH.
--- NOTE | 2024-04-01 14:00 | NUR ---
PT IS SITTING IN BED WITH SISTER AT THE BEDSIDE. CALL LIGHT IN REACH.
--- NOTE | 2024-04-01 16:00 | NUR ---
PT IS SLEEPING IN BED, ON TELEMETRY. PT HAS EVEN AND UNLABORED REPIRATIONS. CALL LIGHT IN REACH.
[2024-04-01] MEDS ORDERED: BISACODYL 10 MG SUPP PR PRN (17:20)
[2024-04-01] MEDS ORDERED: MAGNESIUM HYDROXIDE 30 ML UDC PO PRN (17:20)
--- NOTE | 2024-04-01 19:40 | NUR ---
Pt is alert and orient. She is able to make needs known. Pt assessment complete. Pt denies any pain or discomfort at this time. Waiting for pt to have a BM pending discharge. Pt showing no distress at this time. Breathing is even and non-labored on 3L n/c. Bed remains in low position with call light within reach.
[2024-04-01 19:52] VITALS: BP 108/39
[2024-04-02 00:08] VITALS: BP 141/56
--- NOTE | 2024-04-02 00:44 | NUR ---
Pt is laying on her back with her eyes closed. No distress noted. No compaints of pain or discomfort. Breathing remains even and non-labored. No BM at this time. Safety measures remain in place, with call light within reach.
--- NOTE | 2024-04-02 04:08 | NUR ---
Pt is laying on her back with her eyes closed. Cpap machine is on, patient is breathing even and non-labored. No distress noted at this time. Still no BM. Call hsieh in reach of pt, with bed in low position.
[2024-04-02 06:47] VITALS: BP 132/69
[2024-04-02 07:11] VITALS: BP 163/52
[2024-04-02] MEDS ORDERED: KRISTALOSE20 GM PO (09:48)
[2024-04-02 11:32] VITALS: BP 134/69
[2024-04-02 14:48] VITALS: BP 126/56
[2024-04-02 14:49] VITALS: BP 126/56
--- NOTE | 2024-04-02 14:56 | NUR ---
Discharge instructions given. Patient verbalizes understanding of same. Discharged in stable condition via [facility] to [facility] with *Other. All belongings sent with pt.
--- NOTE | 2024-04-02 15:04 | NUR ---
ATTEMPTED TO GIVE REPORT TO FACILITY ([facility]) COUPLE OF TIMES, NO ANSWER, MESSAGE LEFT TO CALL [facility]. PT LEFT AT 1500
== END 2024-04-02 14:55 | DRG 682 ==
LOC: MS2 21:30 → ICU 03-28 11:19 → MS2 04-01 18:36
PROVIDERS: Internal Medicine; Internal Medicine Nephrology; Nurse Practitioner Family; ADMIT Internal Medicine; ATTEND Internal Medicine
PROC: 5A09457 Assistance with Respiratory Ventilation, 24-96 Consecutive Hours, Continuous Positive Airway Pressure (ICD-10-PCS; principal; 2024-03-28)
DX: N17.0 Acute kidney failure with tubular necrosis (principal); J96.21 Acute and chronic respiratory failure with hypoxia; J96.22 Acute and chronic respiratory failure with hypercapnia; E66.2 Morbid (severe) obesity with alveolar hypoventilation; I13.0 Hypertensive heart and chronic kidney disease with heart failure and stage 1 through stage 4 chronic kidney disease, or unspecified chronic kidney disease; Z68.43 Body mass index [BMI] 50.0-59.9, adult; N39.0 Urinary tract infection, site not specified; N18.4 Chronic kidney disease, stage 4 (severe); B96.5 Pseudomonas (aeruginosa) (mallei) (pseudomallei) as the cause of diseases classified elsewhere; E11.22 Type 2 diabetes mellitus with diabetic chronic kidney disease; I50.9 Heart failure, unspecified; I95.9 Hypotension, unspecified; E83.42 Hypomagnesemia; E86.9 Volume depletion, unspecified; D63.1 Anemia in chronic kidney disease; J44.9 Chronic obstructive pulmonary disease, unspecified; E11.40 Type 2 diabetes mellitus with diabetic neuropathy, unspecified; K59.00 Constipation, unspecified; E78.5 Hyperlipidemia, unspecified; Z79.84 Long term (current) use of oral hypoglycemic drugs; Z87.891 Personal history of nicotine dependence
CPT/HCPCS: J1644; J1815; J3475